=== PATIENT | male | born 1965 | race Caucasian/White ===

== ENCOUNTER → 2019-08-13 | Outpatient (CLI) | payer OTHER ==
--- NOTE | 2019-08-13 10:11 | XR ---
EXAMINATION TYPE: XR chest 2V DATE OF EXAM: 08/13/2019 COMPARISON: NONE HISTORY: Prior pectus surgery, pre-MRI clearance. TECHNIQUE: Frontal and lateral views of the chest are obtained. FINDINGS: Pectus excavatum deformity. There is no focal air space opacity, pleural effusion, or pneu mothorax seen. The cardiac silhouette size is enlarged. The osseous structures are intact. IMPRESSION: No suspicious metallic or intracardiac foreign body to prevent MRI study.
== END | disposition home or self-care (01) ==
LOC: RADXRMAIN 09:21
PROVIDERS: ATTEND Orthopaedic Surgery
DX: Z01.818 Encounter for other preprocedural examination (principal); Z98.890 Other specified postprocedural states
CPT/HCPCS: 71046

== ENCOUNTER → 2019-09-16 | Outpatient (CLI) | payer OTHER ==
[2019-09-16 17:36] LABS: HCT 49.8 % (39.0-53.0); HGB 17.1 gm/dL (13.0-17.5); MCH 31.3 pg (25.0-35.0); MCHC 34.3 g/dL (31.0-37.0); MCV 91.2 fL (80.0-100.0); Mean Platelet Volume 7.4; Platelet Count 142 k/uL (150-450); RBC 5.46 m/uL (4.30-5.90); RDW 13.3 % (11.5-15.5); WBC 4.8 k/uL (3.8-10.6)
[2019-09-16 17:38] LABS: Appearance,Urine Clear (Clear); Bilirubin,Urine Negative (Negative); Blood,Urine Negative (Negative); Color,Urine Light Yellow; Glucose,Urine (UA) Negative (Negative); Ketones,Urine Negative (Negative); Leukocyte Esterase,Urine Negative (Negative); Nitrite,Urine Negative (Negative); PH, Urine 6.5 (5.0-8.0); Protein,Urine Negative (Negative); Specific Gravity,Urine 1.012 (1.001-1.035); Urobilinogen,Urine <2.0 mg/dL (<2.0)
[2019-09-16 17:42] LABS: INR 0.9 (<1.2); Partial Thromboplastin Time 24.9 sec (22.0-30.0); Prothrombin Time 9.8 sec (9.0-12.0)
[2019-09-16 17:46] LABS: ALT 52 U/L (4-49); AST 48 U/L (17-59); African American GFR (CKD) >90 (>60 ml/min/1.73 sqM); Albumin 4.4 g/dL (3.5-5.0); Alkaline Phosphatase 62 U/L (38-126); Anion Gap 8 mmol/L; Blood Urea Nitrogen 17 mg/dL (9-20); Calcium 9.3 mg/dL (8.4-10.2); Carbon Dioxide 31 mmol/L (22-30); Chloride 97 mmol/L (98-107); Glucose 90 mg/dL (74-99); Non-African American GFR(CKD) 83 (>60 ml/min/1.73 sqM); Potassium 4.5 mmol/L (3.5-5.1); Sodium 136 mmol/L (137-145); Total Bilirubin 1.1 mg/dL (0.2-1.3); Total Protein 7.6 g/dL (6.3-8.2)
== END | disposition home or self-care (01) ==
LOC: LABPAT 17:06
PROVIDERS: ATTEND Orthopaedic Surgery
DX: Z01.818 Encounter for other preprocedural examination (principal); Z01.812 Encounter for preprocedural laboratory examination
CPT/HCPCS: 36415; 80053; 81003; 85027; 85610; 85730; 87070; 93005

== ENCOUNTER 2019-09-28 07:28 | Day surgery (SDC) | payer OTHER ==
[2019-09-22 11:43] VITALS: BMI 27.8
[~2019-09-28 07:28] MED LIST: HYDROmorphone 0.5 MG/0.5 ML SYRINGE IVP PRN; LIDOCAINE 1% 20 ML VIAL (10MG/ML) FOR IV START INTRADERMA PRN; ONDANSETRON 4 MG/2 ML VIAL IVP ONE
[2019-09-28] MEDS ORDERED: TRANEXAMIC ACID 1,000 MG in SODIUM CHLORIDE 0.9% 100 ML IVPB ONE ×4 (07:30)
[2019-09-28] MEDS ORDERED: MELOXICAM 7.5 MG TAB PO ONE (07:30)
[2019-09-28] MEDS ORDERED: GABAPENTIN 300 MG CAP PO ONE (07:30)
[2019-09-28] MEDS ORDERED: ACETAMINOPHEN TAB 500 MG TAB PO ONE (07:30)
[2019-09-28] MEDS: LACTATED RINGERS 1,000 ML IV SCH ×3 (07:40→20:54)
[2019-09-28] MEDS ORDERED: DEXAMETHASONE SOD PHOSPHATE 10 MG/ML 1 ML VIAL IV ONE (07:57)
[2019-09-28] MEDS ORDERED: MIDAZOLAM 2 MG/2 ML VIAL IV ONE (08:24)
[2019-09-28] MEDS ORDERED: fentaNYL (PF) 50 MCG/ML 2 ML AMP IV ONE (08:24)
[2019-09-28] MEDS ORDERED: SODIUM CHLORIDE 0.9% 100 ML BAG ONE (09:14)
[2019-09-28] MEDS ORDERED: fentaNYL (PF) 50 MCG/ML 2 ML AMP ONE (09:14)
[2019-09-28] MEDS ORDERED: PROPOFOL 10 MG/ML 20 ML VIAL IV ONE (09:14)
[2019-09-28] MEDS ORDERED: TRANEXAMIC ACID 1,000 MG/10 ML VIAL ONE (09:14)
[2019-09-28] MEDS ORDERED: MIDAZOLAM 2 MG/2 ML VIAL ONE (09:14)
[2019-09-28] MEDS: ROPIVACAINE 246.25 MG, EPINEPHrine 0.5 MG, KETOROLAC 30 MG, cloNIDine HCL/PF 80 MCG, WA... MISCELLANE ONE ×15 (09:18→10:16)
[2019-09-28] MEDS ORDERED: ceFAZolin 3,000 MG in SODIUM CHLORIDE 0.9% IRRIGATIO 3,000 ML IRRIGATION ONE (09:45)
[2019-09-28] MEDS ORDERED: LACTATED RINGERS 1,000 ML IV ONE (10:08)
--- NOTE | 2019-09-28 10:52 | P.OP ---
Date of Procedure: 09/28/19 Preoperative Diagnosis: Severe osteoarthritis right knee Postoperative Diagnosis: Severe osteoarthritis right knee Procedure(s) Performed: Right total knee arthroplasty using Vision[employer] patient specific guides Implants: Lombardo [employer] Nephew Cruciate Retaining Journey II CR Oxinium Femoral Component size 8, right Lombardo [employer] Nephew Journey Nonporous Tibial Baseplate size 6, right Lombardo [employer] Nephew Journey II CR, XLPE Articular Insert, 9 mm, size 5-6 Lombardo [employer] Nephew Carol Ann II Resurfacing Patellar Component, Oval, 32 mm All components were cemented using Palacose R bone cement. The articulation is Oxinium on polyethylene. Visionaire patient specific guides The articulation is Oxinium on polyethylene. Anesthesia: spinal Surgeon: Anup Eucdea Apartment Property Manager #1: Paula Nesbitt Estimated Blood Loss (ml): 25 Pathology: other (Bone and cartilage) Condition: stable Disposition: PACU Indications for Procedure: After failure of conservative treatment we discussed the surgical and nonsurgical treatment options at length. Patient wishes to proceed with a total knee arthroplasty. Complications specific to this procedure were discussed at length, including but not limited to infection, bleeding, stiffness, and nerve injury. Patient is aware of all these complications and informed consent was obtained Operative Findings: The operative findings are consistent with severe osteoarthritis of the right knee Description of Procedure: Patient was seen in the preoperative area consent was reviewed and operative site was marked with a skin marker. An adductor canal pain catheter was placed by anesthesia in the preoperative area. Patient was then brought to the operating room and given preoperative antibiotics intravenously. A spinal anesthetic was administered by the anesthesia department. A tourniquet was placed on the upper thigh and the lower extremity was prepped and draped in usual sterile fashion. A gram of transexamic acid was given. A universal ti meout was then performed which confirmed the patient's name, surgical site, ALLERGIES, and consent. The lower extremity was then exsanguinated and tourniquet was inflated to 250 mmHg. A standard and anterior midline approach to the knee was performed. The skin and subcutaneous tissue was dissected down to the patellar tendon. A medial parapatellar arthrotomy was then performed. The knee was then extended, the patellar was everted, and the knee was again flexed. Anterior horns of both menisci were excised, and a release was performed to the posterior medial aspect of the knee. On gross visual inspection, there was complete loss of articular cartilage in the medial and patellofemoral joint spaces. There was also significant cartilage damage in the lateral compartment. There were multiple periarticular osteophytes. The patient specific guide was placed on the distal femur, and pinned in place. Using the patient specific guide, the distal femoral cut was performed. The cutting block was then removed and the cut was checked for flatness. The appropriate 5-in-1 cutting block was then pinned in place through the holes that were drilled through the patient specific guide. The anterior condyles were cut without notching. The posterior and chamfer cuts were performed while protecting the collateral ligaments. The cutting block was then removed. Attention was then directed to the tibia. The remaining ACL was removed with a Ronguer, and the tibia was then gently subluxed forward with a large bent knee retractor. Any remaining menisci was excised. The posterior lateral corner was cauterized in order to cauterize the lateral geniculate artery. The patient specific guide for the tibia was then placed and was held in place with pins. Pinholes were then placed for rotation of the tibial component as well. Proximal tibia was then cut and sized. Next trials were then placed with the appropriate-sized insert. The knee was able to fully extend and flex to 130 a nd was stable throughout all range of motion. The knee was then extended, patella everted. Patella was then measured, and then using an osteotomy guide, the patella was cut at the appropriate level. The patella was then measured and drilled and the patella trial was then placed. The knee was then taken through range of motion with the patella trial and the patella tracked normally. The knee was then extended patella trial was then removed and the patella was everted. Knee was then flexed and lug holes were drilled through the femoral trial and the femoral trial was then removed. The tibial was then exposed, and the tibial broach guide was then pinned in place after it was set for the appropriate rotation to allow for the most coverage without overhang. The tibia was then reamed and broached. The cut surfaces of bone were then irrigated with pulsatile lavage. The posterior structures were injected with the ropivacaine solution. The knee was also irrigated with Irrisept solution. The components were then opened, the cement was mixed, and the components were then cemented in place. The cement was allowed to harden with the knee in full extension. While the cement was henna dening, the remaining soft tissues were then injected with a ropivacaine solution, which consisted of 246.25 mg of ropivacaine, 0.5 mg of epinephrine, 30 mg of Toradol, 80 g of clonidine, and 48.45 mL of sterile water, for a total of 100 mL of fluid injected. After the cemented hardened. The tourniquet was released, and hemostasis was obtained. A second gram of transexamic acid was given. The knee was again irrigated. The knee was again taken through range of motion and found to be stable throughout all range of motion of 0-130, and the patella tracked normally. The fascia was then closed with #2 strata fix suture. The subcutaneous tissue was closed with 3-0 Vicryl and 3-0 strata fix. Dermabond glue was used for the skin and placed with the knee in flexion. The patient was placed in a sterile silver dressing. Patient was then transferred to recovery room in stable condition. The assistant therapy aide RAMON Harrell was required due the complexity surgery and the need for a skilled surgical aide. She assisted in positioning, draping, retraction, and closure of the wound.
[2019-09-28] MEDS ORDERED: ROPIVACAINE 0.2%-NS ON-Q PUMP 1,090 MG, EMPTY PAIN BALL 1 EACH MISCELLANE PRN (11:01)
--- NOTE | 2019-09-28 11:03 | P.ANPRN ---
Procedure Note - Anesthesia - Nerve Block Performed Right Adductor Canal Infusion Time Out Performed: Yes Date of Procedure: 09/28/19 Procedure Start Time: :15 Procedure Stop Time: :22 Location of Patient: PreOp Indication: Acute Post-Operative Pain Specifically requested for management of pain by DrAngi: Anup Euceda Sedation Type: Sedate with meaningful contact maintained Preparation: Sterile Prep Position: Supine Catheter Depth at Skin (cm): 7 Catheter: Indwelling Needle Types: Pajunk Needle Gauge: 18 Ultrasound used to visualize needle placement: Yes Ultrasound used to observe medication spread: Yes Injectate: 0.5% Ropivacaine (see comment for volume) (20 cc) Blood Aspirated: No Pain Paresthesia on Injection Noted: No Resistance on Injection: Normal Image Stored and Saved: Yes Events: Uneventful and Well Tolerated
[2019-09-28] MEDS ORDERED: HYDROmorphone 0.5 MG/0.5 ML SYRINGE IVP PRN ×2 (11:20)
[2019-09-28] MEDS ORDERED: HYDROcodone/APAP 5-325MG 1 EACH TAB PO PRN (11:20)
[2019-09-28] MEDS ORDERED: HYDROmorphone 1 MG/ML 1 ML SYRINGE IVP PRN (11:20)
[2019-09-28] MEDS ORDERED: MAGNESIUM HYDROXIDE 2,400 MG/10 ML CUP PO PRN (11:20)
[2019-09-28] MEDS ORDERED: NA PHOS,M-B/NA PHOS,DI-BA 133 ML ENEMA RECTAL PRN (11:20)
[2019-09-28] MEDS ORDERED: BISACODYL 10 MG SUPP RECTAL PRN (11:20)
[2019-09-28] MEDS ORDERED: ONDANSETRON 4 MG/2 ML VIAL IVP PRN (11:20)
[2019-09-28] MEDS ORDERED: hydrOXYzine PAMOATE 25 MG CAP PO PRN (11:20)
[2019-09-28] MEDS ORDERED: TEMAZEPAM 15 MG CAP PO PRN (11:20)
[2019-09-28] MEDS ORDERED: NALOXONE 0.4 MG/ML 1 ML VIAL IV PRN (11:20)
--- NOTE | 2019-09-28 11:57 | XR ---
EXAMINATION TYPE: XR knee limited RT DATE OF EXAM: 09/28/2019 CLINICAL HISTORY: Right knee pain and arthritis status post total knee replacement. TECHNIQUE: Portable AP and crosstable lateral views of the right knee are obtained immediately posto peratively. COMPARISON: None FINDINGS: Metallic hardware from total right knee arthroplasty is seen and appears satisfactory in a lignment and position. There is evidence of recent surgery with diffuse subcutaneous and soft tissue swelling noted. IMPRESSION: METALLIC HARDWARE FROM TOTAL RIGHT KNEE ARTHROPLASTY IS SATISFACTORY IN ALIGNMENT.
[2019-09-28] MEDS: HYDROcodone/APAP 5-325MG 1 EACH TAB PO PRN ×2 (16:45→23:35)
[2019-09-28] MEDS: ASPIRIN 325 MG TAB PO SCH (20:53)
[2019-09-28] MEDS ORDERED: SENNOSIDES-DOCUSATE SODIUM 1 EACH TAB PO SCH (21:00)
[2019-09-29] MEDS: LACTATED RINGERS 1,000 ML IV SCH ×2 (01:12→05:19)
[2019-09-29 07:09] VITALS: BP 128/68; PULSE 70; RESP 17; TEMP 98.3
[2019-09-29] MEDS: ASPIRIN 325 MG TAB PO SCH (07:13)
[2019-09-29 08:17] LABS: Basophils % (A) 0 %; Eosinophils % (A) 0 %; HCT 43.6 % (39.0-53.0); HGB 15.2 gm/dL (13.0-17.5); Lymphocytes # (A) 1.4 k/uL (1.0-4.8); Lymphocytes % (A) 13 %; MCH 31.4 pg (25.0-35.0); MCHC 34.8 g/dL (31.0-37.0); MCV 90.3 fL (80.0-100.0); Mean Platelet Volume 7.4; Monocytes # (A) 0.5 k/uL (0-1.0); Monocytes % (A) 5 %; Neutrophils # (A) 9.2 k/uL (1.3-7.7); Neutrophils % (A) 82 %; Platelet Count 155 k/uL (150-450); RBC 4.83 m/uL (4.30-5.90); WBC 11.3 k/uL (3.8-10.6)
--- NOTE | 2019-09-29 08:28 | P.DS ---
Providers Expected date of discharge: 09/29/19 Attending physician: Anup Euceda Primary care physician: Trino Morales - Discharge Diagnosis(es) (1) Osteoarthritis of right knee Current Visit: Yes Status: Acute (2) Status post total right knee replacement Current Visit: Yes Status: Acute Hospital Course: This is a pleasant 54-year-old male last seen in our office with complaints of right knee pain. Patient has known history of degenerative arthritis of the right knee and presented to discuss options. After discussion and consideration, patient elected to proceed with a total knee arthroplasty of the right knee. The patient was seen preoperatively and medically cleared for surgery by Dr. Trino Morales. The patient was admitted to [facility] and underwent right total knee arthroplasty on 09/28/[address] Anup Euceda. The procedure was performed without complications or sequelae. The patient has done well postoperatively. The patient was seen and evaluated at bedside today and denies any new complaints. Pain is reasonably controlled. Dressing is clean dry and intact. Incision looks fine with no erythema or active drainage. Calf is soft and nontender. The patient has full foot and ankle motion without difficulty. Patient's right lower extremity is neurovascular intact. Patient is orthopedically stable for discharge to home today. Pertinent Studies: Laboratory Tests 09/29/19 07:47 WBC 11.3 H RBC 4.83 Hgb 15.2 Hct 43.6 Neutrophils # 9.2 H Patient Condition at Discharge: Stable Plan - Discharge Summary Discharge Rx Participant: Yes New Discharge Prescriptions: New Aspirin 325 mg PO BID #60 tab Sennosides-Docusate Sodium [Senokot-S] 2 tab PO DAILY #30 tablet HYDROcodone/APAP 5-325MG [Hilliards 5] 1 - 2 each PO Q4-6H PRN #56 tab PRN Reason: Pain No Action Naproxen Sodium [Aleve] 220 mg PO BID PRN PRN Reason: Pain Discharge Medication List Naproxen Sodium [Aleve] 220 mg PO BID PRN 09/22/19 [History] Aspirin 325 mg PO BID #60 tab 09/28/19 [Rx] Sennosides-Docusate Sodium [Senokot-S] 2 tab PO DAILY #30 tablet 09/28/19 [Rx] HYDROcodone/APAP 5-325MG [Hilliards 5] 1 - 2 each PO Q4-6H PRN #56 tab 09/29/19 [Rx] Follow up Appointment(s)/Referral(s): Anup Euceda DO [Doctor of Osteopathic Medicine] - 2 Weeks Ambulatory/Diagnostic Orders: Continuous Passive Motion (CPM) Machine [DME.AMB1] Time Frame: 3 Weeks, Location: None Selected Patient Instructions/Handouts: *Surgery [facility] - On-Q Pain Pump Discharge Instructions, Knee Replacement (DC) Activity/Diet/Wound Care/Special Instructions: Weightbearing as tolerated with walker Keep dressing in place for 10 days unless saturated Aspirin 325 mg twice a day May shower over dressing CPM 5-6 hours daily Follow up with Dr. Anup Euceda in 2 weeks. Call [facility] with questions or concerns, Discharge Disposition: HOME SELF-CARE
--- NOTE | 2019-09-29 13:31 | P.PN ---
Progress Note - Text 09/29 640am 54 year old male tkr by Dr janet gonzalez. pt has on - q pump for post op pain control with the solution running at 8cc/hr with a vas of 2. Plan to continue on-q pump infusion.
== END 2019-09-29 10:50 | disposition home or self-care (01) ==
LOC: OR 07:28 → 4SSUR 08:45 → OR 09-29 10:50 → EDSTATUS 10-11 12:30
PROVIDERS: ATTEND Orthopaedic Surgery
DX: M17.11 Unilateral primary osteoarthritis, right knee (principal); M10.9 Gout, unspecified; Z88.0 Allergy status to penicillin; Z88.1 Allergy status to other antibiotic agents; Z97.3 Presence of spectacles and contact lenses; Z83.3 Family history of diabetes mellitus
CPT/HCPCS: 97116; 97161; 64448; 76942; 85025; 88300; 73560; 27447; C1713; C1776; J2250; J0171; J1100; J0690 ×3; J2405; J3010; J1885; J2795; J2704; J0735

== ENCOUNTER → 2021-01-22 | Outpatient (CLI) | payer OTHER ==
--- NOTE | 2021-01-22 13:13 | XR ---
EXAMINATION TYPE: XR chest 2V DATE OF EXAM: 01/22/2021 COMPARISON: 08/13/2019 HISTORY: Preoperative TECHNIQUE: Frontal and lateral views of the chest are obtained. FINDINGS: There is no focal air space opacity, pleural effusion, or pneumothorax seen. The cardiac silhouette size is within normal limits. The osseous structures are intact. IMPRESSION: No acute cardiopulmonary process.
[2021-01-22 13:31] LABS: Partial Thromboplastin Time 24.9 sec (22.0-30.0); Prothrombin Time 10.7 sec (9.0-12.0)
[2021-01-22 13:46] LABS: Appearance,Urine Clear (Clear); Bilirubin,Urine Negative (Negative); Blood,Urine Negative (Negative); Color,Urine Yellow; Glucose,Urine (UA) Negative (Negative); Ketones,Urine Negative (Negative); Leukocyte Esterase,Urine Negative (Negative); Nitrite,Urine Negative (Negative); PH, Urine 5.5 (5.0-8.0); Protein,Urine Negative (Negative); Specific Gravity,Urine 1.014 (1.001-1.035); Urobilinogen,Urine <2.0 mg/dL (<2.0)
[2021-01-22 20:45] LABS: HCT 47.9 % (39.6-50.0); HGB 16.6 g/dL (13.0-17.0); MCH 31.7 pg (27.0-32.0); MCHC 34.7 g/dL (32.0-37.0); MCV 91.4 fL (80.0-97.0); Mean Platelet Volume 10.6 fL (9.5-12.2); Platelet Count 172 X 10*3/uL (140-440); RBC 5.24 X 10*6/uL (4.40-5.60); RDW 13.3 % (11.5-14.5); WBC 4.59 X 10*3/uL (4.50-10.00)
[2021-01-22 22:04] LABS: African American GFR (CKD) 97.1 (60.0-200.0); Anion Gap 9.8 mmol/L (4.00-12.00); Calcium 9.2 mg/dL (8.7-10.3); Carbon Dioxide 28.2 mmol/L (21.6-31.8); Non-African American GFR(CKD) 83.8 (60.0-200.0); Potassium 4.4 mmol/L (3.5-5.5)
== END | disposition home or self-care (01) ==
LOC: LABWHC1 11:53
PROVIDERS: ATTEND Orthopaedic Surgery Orthopaedic Surgery of the Spine
DX: Z01.818 Encounter for other preprocedural examination (principal); M50.320 Other cervical disc degeneration, mid-cervical region, unspecified level; M50.223 Other cervical disc displacement at C6-C7 level; M54.6 Pain in thoracic spine; M54.12 Radiculopathy, cervical region; R00.1 Bradycardia, unspecified
CPT/HCPCS: 36415; 71046; 80048; 81003; 85027; 85610; 85730; 93005